=== PATIENT | female | born 1935 | race Caucasian/White ===

== ENCOUNTER → 2016-11-18 | Outpatient (CLI) | payer MEDICARE ==
[~2016-11-18] MED LIST: ALPR0.5T3 PO; ASPI81TA82 PO; CYAN1000P IM; ENAL10TA7 PO; FLUO.1%O EACH EYE; FURO1TAB93 PO; HYDR50TA5 PO; LATA0.00 EACH EYE; LEVO75TA3 PO; LOMO2.5T PO; LOVA40TA PO; METO100T PO; MOTR200T PO; POTA10TA15 PO; REFR0.5D4 EACH EYE; VITA500015 PO
[2016-11-18 13:52] LABS: BLOOD GAS BASE EXCESS 0.9 mmol/L (-2-2); BLOOD GAS CARBOXYHEMOGLOBIN 1.1 % (0-4); BLOOD GAS HCO3 25 mmol/L (22-26); BLOOD GAS METHEMOGLOBIN 1.2 % (0-2); BLOOD GAS O2 HGB SATURATION 94 % (90-100); BLOOD GAS OXYGEN CONTENT 17.5 Vol % (12.0-20.0); BLOOD GAS PCO2 40 mmHg (38-42); BLOOD GAS PO2 86 mmHg (61-120); BLOOD GAS TOTAL HGB 13.1 G/DL (12.0-16.0); CRITICAL VALUE NO; DRAW SITE RT RADIAL; FIO2 21 %; NUMBER OF ARTERIAL PUNCTURES 1; STAT NO; TEMP CORR TO 98.6; ULNAR PULSE PRESENT
--- NOTE | 2016-11-24 10:55 | RSPPFT ---
DATE OF PROCEDURE: 11/18/16 COMMENTS: Spirometry with FVC of 1.8 predicted 2.1, FEV1 of 1.3 predicted 1.4, FEV1/FVC ratio 70% predicted 65%. Post-bronchodilator FEV1 increases to 1.7. RV is increased at 2.1 predicted 1.8 implying air trapping. 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 Flow volume loop is not satisfactory and this interpretation should be regarded with caution.
== END ==
LOC: HRSP 12:03
PROVIDERS: ATTEND Internal Medicine Pulmonary Disease
DX: R06.02 Shortness of breath (principal)
CPT/HCPCS: 36600; 82805; 94620